=== PATIENT | female | born 1990 | race Caucasian/White ===

== ENCOUNTER 2017-08-11 05:51 | Day surgery (SDC) | payer OTHER ==
[~2017-08-11] VITALS: Ht 162.6 cm; Wt 61.0 kg
[2017-08-11] MEDS ORDERED: LIDOCAINE 1% MDV 20ML VIAL SQ PRN (06:00)
[2017-08-11] MEDS ORDERED: ACETAMINOPHEN 650 MG SUPP PR ONE (06:00)
[2017-08-11] MEDS ORDERED: LR 1,000 ML IV SCH ×2 (06:00→09:15)
[2017-08-11] MEDS ORDERED: LR 1,000 ML IV ONE (06:00)
[2017-08-11 06:30] LABS: MEAN CORPUSCULAR HEMOGLOBIN 30.4 pg (27.0-33.0); MEAN CORPUSCULAR HGB CONC 34.1 g/dl (32.0-36.5); PLATELET COUNT, AUTOMATED 215 10^3/uL (150-450); RED CELL DISTRIBUTION WIDTH 11.5 % (11.5-14.5); WHITE BLOOD COUNT 7.6 10^3/uL (4.0-10.0)
[2017-08-11 06:55] LABS: ANION GAP 6 MEQ/L (8-16); BLOOD UREA NITROGEN 11 MG/DL (7-18); CALCIUM LEVEL 8.6 MG/DL (8.5-10.1); CARBON DIOXIDE LEVEL 28 MEQ/L (21-32); CHLORIDE LEVEL 108 MEQ/L (98-107); GLOMERULAR FILTRATION RATE > 60.0 (>60); GLUCOSE, FASTING 87 MG/DL (70-105); HCG, SERUM QUANTITATIVE < 1.0 MIU/ML; POTASSIUM SERUM 4.3 MEQ/L (3.5-5.1); SODIUM LEVEL 142 MEQ/L (136-145)
[2017-08-11] MEDS ORDERED: BUPIVACAINE HCL 0.5% 10 ML VIAL As Ordered ONE (07:15)
[2017-08-11] MEDS ORDERED: ACETAMINOPHEN 650 MG SUPP As Ordered ONE (07:15)
[2017-08-11] MEDS ORDERED: METHYLENE BLUE 0.5% (5MG/ML) 10 ML AMP (PROVAYBLUE)(Q9968 PER 1MG) As Ordered ONE (07:15)
[2017-08-11] MEDS ORDERED: dexameTHASONE 4 MG/ML 1ML VIAL (J1100) As Ordered ONE (07:55)
[2017-08-11] MEDS ORDERED: MIDAZOLAM INJ 2 MG/2 ML VIAL (J2250) As Ordered ONE (07:55)
[2017-08-11] MEDS ORDERED: fentaNYL 100 MCG/2 ML INJECTION (J3010) As Ordered ONE ×2 (07:55→08:54)
[2017-08-11] MEDS ORDERED: ROCURONIUM BROMIDE 50 MG/5 ML VIAL As Ordered ONE (07:59)
[2017-08-11] MEDS ORDERED: METOCLOPRAMIDE INJ 10MG/2ML VIAL (J2765) As Ordered ONE (07:59)
[2017-08-11] MEDS ORDERED: ONDANSETRON 4MG/2ML VIAL (J2405) As Ordered ONE ×2 (07:59→08:54)
[2017-08-11] MEDS ORDERED: KETOROLAC 60 MG/2 ML VIAL (J1885) As Ordered ONE (08:00)
[2017-08-11] MEDS ORDERED: LIDOCAINE 2% INJ 100 MG/5 ML SDV (FOR ANES.) As Ordered ONE (08:01)
[2017-08-11] MEDS ORDERED: PROPOFOL 500 MG/50 ML VIAL As Ordered ONE (08:06)
[2017-08-11] MEDS ORDERED: NEOSTIGMINE 10 MG/10 ML VIAL (J2710) As Ordered ONE (08:34)
[2017-08-11] MEDS ORDERED: GLYCOPYRROLATE INJ 0.2 MG/ML 2 ML VIAL As Ordered ONE (08:34)
[2017-08-11] MEDS ORDERED: PERCOCET 5MG/325MG TAB As Ordered ONE (08:54)
[2017-08-11] MEDS: fentaNYL 100 MCG/2 ML INJECTION (J3010) IV PRN ×4 (09:00→09:17)
[2017-08-11] MEDS ORDERED: HYDROmorphone HCL 2 MG/ML 1ML VIAL (J1170) As Ordered ONE (09:02)
[2017-08-11] MEDS ORDERED: PERCOCET 5MG/325MG TAB PO PRN (09:15)
[2017-08-11] MEDS ORDERED: HYDROmorphone HCL 1 MG/ML SYRINGE (J1170) IV PRN (09:15)
[2017-08-11] MEDS ORDERED: ONDANSETRON 4MG/2ML VIAL (J2405) IV PRN (09:15)
[2017-08-11 10:26] VITALS: BP 103/58
--- NOTE | 2017-08-12 09:58 | RO ---
DATE OF PROCEDURE: 08/11/2017 PREOPERATIVE DIAGNOSES: Dyspareunia, dysmenorrhea amenorrhea, cervical stenosis impacted intrauterine contraceptive device (IUCD). POSTOPERATIVE DIAGNOSES: Dyspareunia, dysmenorrhea amenorrhea, cervical stenosis impacted IUCD. Defect in the left uterosacral and deviation of the cervical canal to the right. OPERATION PROPOSED: Diagnostic laparoscopy, hysteroscopy, dilation and curettage, removal of IUCD. PROCEDURE PERFORMED: Diagnostic laparoscopy, operative hysteroscopy, removal of IUCD. SURGEON: Dr. Darryl Wilson. LADLE LINER HELPER: Heather. ANESTHESIA: General plus local anesthetic for intraperitoneal procedures. ESTIMATED BLOOD LOSS: Less than 30 mL. DESCRIPTION OF PROCEDURE: Under adequate anesthesia, prepped and draped in lithotomy position. Adequate time-out was performed. Acetaminophen suppository 1300 mg per rectum, sequentials on board, Frye catheter in the bladder draining clear urine. A weighted speculum was placed in vagina. Interestingly the uterus was deviated off to the left and the cervix was deviated off to the left. A single-tooth tenaculum was placed on the anterior lip of the cervix and we initially tried to dilate the cervix. We could not see the IUCD strings and the cervical canal seemed to go off to the left and then suddenly take a descending path posteriorly. We put in a 5 mm dilator and then reprepping and draping, a small subumbilical incision was made. Local anesthetic into the umbilical site. A Josie was placed in the site and then direct entry into the abdomen. No evidence of perforation, hemorrhage or bleeding with the 5 mm port, after expanding the abdomen to 14 mm pressure with 2.8 liters of CO2. Panoramic review of the right upper quadrant was normal. The right round ligament was normal. Anterior aspect of the bladder was clear. Uterus is deviated off to the left. Uterosacral was absent or very deficient on the left. Right and left ovaries appeared to be normal. Right and left tubes appeared to be normal. Under direct vision we went ahead and dilated the cervix in order to get into the uterine cavity. We sounded the uterus depth of 8 cm. Every time we tried to get into the cavity, it appeared to be difficult. We then hysteroscopically evaluated where we were and found our way into the intrauterine cavity. We visualized the strings. We visualized the two arms of the IUCD, one pointing into the right cornua, the other one pointing posteriorly. We tried with the polyp forceps, could not retrieve the intrauterine device (IUD). We tried with a IUD remover, could not remove the IUCD. Therefore we resorted to using the operative hysteroscope and grasped the string with the grasping forceps and pulled the IUCD out. We used 250 mL of normal saline in, 250 mL of normal saline out. We got minimal amount of tissue on curettage as this lady has been amenorrhea since the placement of the Mirena IUCD. It is our belief that this lady should not have an IUCD placed at any time soon as she has such a distorted cervical canal. With instrument and pad counts correct, the instruments were removed from below, the Frye catheter was removed from below, the 5 mm port on the right and the infraumbilical port were sewn in the usual fashion with subcuticular stitches, Marcaine 0.25% to the skin and skin tapes and the patient was sent to recovery in good condition.
== END 2017-08-11 10:39 | disposition home or self-care (01) ==
LOC: M SDC 05:51
PROVIDERS: ATTEND Obstetrics & Gynecology
DX: N94.10 Unspecified dyspareunia (principal); N94.6 Dysmenorrhea, unspecified; N91.2 Amenorrhea, unspecified; N88.2 Stricture and stenosis of cervix uteri; T83.39XA Other mechanical complication of intrauterine contraceptive device, initial encounter; L40.9 Psoriasis, unspecified; Z88.1 Allergy status to other antibiotic agents
CPT/HCPCS: 36415; 49320; 58301; 58558; 80048; 84702; 85027; 88300; J1100; J1170; J1885; J2250; J2405; J2710; J2765; J3010

== ENCOUNTER 2017-09-28 09:53 | Day surgery (SDC) | payer OTHER ==
[2017-09-28] MEDS ORDERED: MIDAZOLAM INJ 2 MG/2 ML VIAL (J2250) As Ordered (09:57)
[2017-09-28] MEDS ORDERED: fentaNYL 100 MCG/2 ML INJECTION (J3010) As Ordered ×2 (09:57→12:09)
[2017-09-28] MEDS ORDERED: NS 800 ML IV (10:00)
[2017-09-28] MEDS: LR 1,000 ML IV (10:00)
[2017-09-28] MEDS ORDERED: NS 1,000 ML IV (10:15)
[2017-09-28 10:20] LABS: HEMATOCRIT 43.2 % (36.0-47.0); HEMOGLOBIN 14.6 g/dl (12.0-16.0); MEAN CORPUSCULAR HEMOGLOBIN 30.1 pg (27.0-33.0); MEAN CORPUSCULAR HGB CONC 33.8 g/dl (32.0-36.5); MEAN CORPUSCULAR VOLUME 89.1 fl (80.0-96.0); PLATELET COUNT, AUTOMATED 239 10^3/uL (150-450); RED BLOOD COUNT 4.85 10^6/uL (4.00-5.40); RED CELL DISTRIBUTION WIDTH 11.4 % (11.5-14.5); WHITE BLOOD COUNT 5.8 10^3/uL (4.0-10.0)
[2017-09-28 10:37] LABS: ANION GAP 7 MEQ/L (8-16); BLOOD UREA NITROGEN 9 MG/DL (7-18); CALCIUM LEVEL 8.9 MG/DL (8.5-10.1); CARBON DIOXIDE LEVEL 25 MEQ/L (21-32); CHLORIDE LEVEL 110 MEQ/L (98-107); CREATININE FOR GFR 0.82 MG/DL (0.55-1.02); GLOMERULAR FILTRATION RATE > 60.0 (>60); GLUCOSE, FASTING 92 MG/DL (70-100); HCG, SERUM QUANTITATIVE < 1.0 MIU/ML; POTASSIUM SERUM 4.1 MEQ/L (3.5-5.1); SODIUM LEVEL 142 MEQ/L (136-145)
[2017-09-28] MEDS: ACETAMINOPHEN 650 MG SUPP As Ordered (11:00)
[2017-09-28] MEDS ORDERED: ROCURONIUM BROMIDE 50 MG/5 ML VIAL As Ordered (11:03)
[2017-09-28] MEDS ORDERED: ONDANSETRON 4MG/2ML VIAL (J2405) As Ordered (11:03)
[2017-09-28] MEDS ORDERED: LIDOCAINE 2% INJ 100 MG/5 ML SDV (FOR ANES.) As Ordered (11:03)
[2017-09-28] MEDS ORDERED: PROPOFOL 200 MG/20 ML VIAL As Ordered (11:03)
[2017-09-28] MEDS ORDERED: ePHEDrine INJ 50 MG/ML VIAL As Ordered (11:03)
[2017-09-28] MEDS ORDERED: KETOROLAC 60 MG/2 ML VIAL (J1885) As Ordered (11:03)
[2017-09-28] MEDS ORDERED: METOCLOPRAMIDE INJ 10MG/2ML VIAL (J2765) As Ordered (11:03)
[2017-09-28] MEDS ORDERED: dexameTHASONE 4 MG/ML 1ML VIAL (J1100) As Ordered (11:03)
[2017-09-28] MEDS: BUPIVACAINE HCL 0.5% 10 ML VIAL As Ordered (11:43)
[2017-09-28] MEDS ORDERED: NORCO, ANEXSIA 5/325MG TABLET (HYDROcodone/ACETAMINOPHEN) As Ordered (12:09)
[2017-09-28] MEDS: fentaNYL 100 MCG/2 ML INJECTION (J3010) IV ×3 (12:10→12:20)
[2017-09-28] MEDS: NORCO, ANEXSIA 5/325MG TABLET (HYDROcodone/ACETAMINOPHEN) PO (12:15)
[2017-09-28] MEDS ORDERED: LR 1,000 ML IV (12:30)
[2017-09-28] MEDS ORDERED: ONDANSETRON 4MG/2ML VIAL (J2405) IV (12:30)
[2017-09-28] MEDS ORDERED: KETOROLAC 30 MG/ML VIAL (J1885) IV (17:15)
== END 2017-09-28 13:45 | disposition home or self-care (01) ==
LOC: M SDC 09:53
DX: Z30.2 Encounter for sterilization (principal); Z88.1 Allergy status to other antibiotic agents
CPT/HCPCS: 58661

== ENCOUNTER 2017-10-20 12:30 | Emergency (ER) | payer OTHER ==
[2017-10-20] MEDS: IPRATROPIUM 0.5MG/ALBUTEROL 2.5MG INH SOL UD 3ML (DUONEB)(J7620) NEB (13:08)
[2017-10-20 13:12] LABS: BASO % 0.2 % (0.0-1.0); EOS % 0.2 % (0.0-3.0); HEMATOCRIT 42.4 % (36.0-47.0); HEMOGLOBIN 14.8 g/dl (12.0-16.0); IMMATURE GRANULOCYTE % 0.3 % (0-3.0); LYMPH # 2.1 10^3/uL (1.5-6.5); LYMPH % 19.4 % (24.0-44.0); MEAN CORPUSCULAR HEMOGLOBIN 30.1 pg (27.0-33.0); MEAN CORPUSCULAR HGB CONC 34.9 g/dl (32.0-36.5); MEAN CORPUSCULAR VOLUME 86.2 fl (80.0-96.0); MONO # 0.8 10^3/uL (0.0-0.8); MONO % 7.9 % (0.0-5.0); NEUTROPHILS # 7.7 10^3/uL (1.8-7.7); PLATELET COUNT, AUTOMATED 190 10^3/uL (150-450); RED BLOOD COUNT 4.92 10^6/uL (4.00-5.40); RED CELL DISTRIBUTION WIDTH 11.3 % (11.5-14.5); WHITE BLOOD COUNT 10.6 10^3/uL (4.0-10.0)
[2017-10-20 13:42] LABS: ALBUMIN 3.8 GM/DL (3.2-5.2); ALBUMIN/GLOBULIN RATIO 1.06 (1.00-1.93); ALKALINE PHOSPHATASE 63 U/L (45-117); ALT/SGPT 16 U/L (12-78); ANION GAP 7 MEQ/L (8-16); AST/SGOT 18 U/L (7-37); BILIRUBIN,DIRECT 0.1 MG/DL (0.0-0.2); BILIRUBIN,TOTAL 0.5 MG/DL (0.2-1.0); BLOOD UREA NITROGEN 10 MG/DL (7-18); CALCIUM LEVEL 8.9 MG/DL (8.5-10.1); CARBON DIOXIDE LEVEL 27 MEQ/L (21-32); CHLORIDE LEVEL 104 MEQ/L (98-107); CPK CREATINE PHOSPHOKINASE 55 U/L (26-192); CREATININE FOR GFR 0.75 MG/DL (0.55-1.30); GLOMERULAR FILTRATION RATE > 60.0 (>60); GLUCOSE, FASTING 86 MG/DL (70-100); POTASSIUM SERUM 3.3 MEQ/L (3.5-5.1); SODIUM LEVEL 138 MEQ/L (136-145); TOTAL PROTEIN 7.4 GM/DL (6.4-8.2); TROPONIN I < 0.02 NG/ML (< 0.10)
[2017-10-20 13:48] LABS: MB/CK RELATIVE INDEX 1.81 (< OR =4); NT-PRO BNP 70 PG/ML (<125)
[2017-10-20] MEDS ORDERED: ISOVUE-370 76% 100ML VIAL (Q9967) As Ordered (13:55)
[2017-10-20] MEDS: POTASSIUM CHLORIDE 10 MEQ SR TABLET PO (15:35)
== END 2017-10-20 15:48 | disposition home or self-care (01) ==
LOC: M ED 12:30
DX: R07.9 Chest pain, unspecified (principal); B34.8 Other viral infections of unspecified site; Z79.899 Other long term (current) drug therapy; Z88.0 Allergy status to penicillin
CPT/HCPCS: Q9967

== ENCOUNTER 2017-11-10 20:39 | Emergency (ER) | payer OTHER ==
[2017-11-10 22:35] LABS: APPEARANCE, URINE CLEAR (CLEAR); BACTERIA, URINE AUTO NEGATIVE (NEGATIVE); BILIRUBIN, URINE AUTO NEGATIVE (NEGATIVE); BLOOD, URINE BLOOD 2+ (NEGATIVE); COLOR, URINE YELLOW (YELLOW); GLUCOSE, URINE (UA) AUTO NEGATIVE (NEGATIVE); KETONE, URINE AUTO NEGATIVE (NEGATIVE); LEUKOCYTE ESTERASE, URINE AUTO NEGATIVE (NEGATIVE); MUCUS, URINE SMALL (NEGATIVE); NITRITE, URINE AUTO NEGATIVE (NEGATIVE); PROTEIN, URINE AUTO NEGATIVE (NEGATIVE); RBC, URINE AUTO 1 /HPF (0-3); SQUAMOUS EPITHELIAL CELL UR AU 0 /HPF (0-6); UROBILINOGEN, URINE AUTO 0.2 mg/dL (0.0-2.0); WBC, URINE AUTO 2 /HPF (0-3)
[2017-11-11 00:57] LABS: CONTROL LINE UCG INT CTR LINE PRESENT; URINE PREG TEST NEGATIVE (NEGATIVE)
[2017-11-11 00:59] LABS: HEMATOCRIT 41.5 % (36.0-47.0); HEMOGLOBIN 14.2 g/dl (12.0-16.0); MEAN CORPUSCULAR HEMOGLOBIN 29.9 pg (27.0-33.0); MEAN CORPUSCULAR HGB CONC 34.2 g/dl (32.0-36.5); MEAN CORPUSCULAR VOLUME 87.4 fl (80.0-96.0); PLATELET COUNT, AUTOMATED 246 10^3/uL (150-450); RED BLOOD COUNT 4.75 10^6/uL (4.00-5.40); RED CELL DISTRIBUTION WIDTH 11.3 % (11.5-14.5); WHITE BLOOD COUNT 11.5 10^3/uL (4.0-10.0)
[2017-11-11 01:05] LABS: ADD MANUAL DIFFER YES; DIFF SLIDE NUMBER 93; POSITIVE DIFF POS FLAG
[2017-11-11 01:30] LABS: ATYPICAL LYMPH 5 % (0-5); BASOPHILS 1 % (0-4); LYMPHOCYTES 42 % (16-52); MONOCYTES 2 % (0-8); NEUTROPHILS 50 % (35-75); PLATELET ESTIMATE NORMAL (NORMAL)
[2017-11-11 01:41] LABS: ALBUMIN 3.9 GM/DL (3.2-5.2); ALBUMIN/GLOBULIN RATIO 1.18 (1.00-1.93); ALKALINE PHOSPHATASE 70 U/L (45-117); ALT/SGPT 15 U/L (12-78); ANION GAP 7 MEQ/L (8-16); AST/SGOT 18 U/L (7-37); BILIRUBIN,TOTAL 0.3 MG/DL (0.2-1.0); BLOOD UREA NITROGEN 11 MG/DL (7-18); CALCIUM LEVEL 8.4 MG/DL (8.5-10.1); CARBON DIOXIDE LEVEL 28 MEQ/L (21-32); CHLORIDE LEVEL 106 MEQ/L (98-107); CREATININE FOR GFR 0.82 MG/DL (0.55-1.30); GLOMERULAR FILTRATION RATE > 60.0 (>60); GLUCOSE, FASTING 88 MG/DL (70-100); HCG, SERUM QUANTITATIVE < 1.0 MIU/ML; POTASSIUM SERUM 4.2 MEQ/L (3.5-5.1); SODIUM LEVEL 141 MEQ/L (136-145); TOTAL PROTEIN 7.2 GM/DL (6.4-8.2)
== END 2017-11-11 02:08 | disposition home or self-care (01) ==
LOC: M ED 20:39
DX: R10.31 Right lower quadrant pain (principal); H69.90 Unspecified Eustachian tube disorder, unspecified ear; Z98.51 Tubal ligation status; J45.909 Unspecified asthma, uncomplicated; F41.9 Anxiety disorder, unspecified; Z79.899 Other long term (current) drug therapy; Z88.0 Allergy status to penicillin
CPT/HCPCS: 80053

== ENCOUNTER 2017-12-27 10:50 | Emergency (ER) | payer OTHER ==
[2017-12-27 12:35] LABS: BILIRUBIN, URINE MANUAL OBSCURED (NEGATIVE); BLOOD URINE MANUAL RFX OBSCURED (NEGATIVE); GLUCOSE, URINE (UA) MANUAL OBSCURED mg/dL (NEGATIVE); KETONE, URINE MANUAL OBSCURED mg/dL (NEGATIVE); MICROSCOPIC INDICATED? RFX YES (NO); NITRITE, URINE MANUAL RFX OBSCURED (NEGATIVE); PROTEIN, URINE MANUAL REFLEX OBSCURED mg/dL (NEGATIVE); SP GRAVITY,URINE MANUAL REFLEX QNS (1.002-1.035); UROBILINOGEN, URINE MANUAL OBSCURED mg/dl (NORMAL)
[2017-12-27 12:36] LABS: BACTERIA, URINE MOD AMOUNT; HYALINE CAST, URINE NONE SEEN /lpf (0-1); MICROSCOPIC EXAM PERFORMED; SQUAMOUS EPITHELIAL CELL URINE MOD AMOUNT /hpf (SMALL AMT); WBC, URINE MAN RFX 15-20 /hpf (0-3)
== END 2017-12-27 12:43 | disposition home or self-care (01) ==
LOC: M ED 10:50
DX: N39.0 Urinary tract infection, site not specified (principal); J45.909 Unspecified asthma, uncomplicated; Z88.0 Allergy status to penicillin; Z79.899 Other long term (current) drug therapy
CPT/HCPCS: 81000

== ENCOUNTER 2018-03-21 13:40 | Emergency (ER) | payer OTHER | END 2018-03-21 16:15 | disposition home or self-care (01) | LOC: M ED 13:40 | DX: S90.01XA Contusion of right ankle, initial encounter (principal); X58.XXXA Exposure to other specified factors, initial encounter; Y92.89 Other specified places as the place of occurrence of the external cause; J30.89 Other allergic rhinitis; Z88.0 Allergy status to penicillin | CPT/HCPCS: 73590 ==

== ENCOUNTER 2018-06-14 20:29 | Emergency (ER) | payer OTHER ==
[2018-06-14 22:34] LABS: AMORPHOUS SEDIMENT RFX SMALL (NEGATIVE); KETONE, URINE AUTO RFX NEGATIVE (NEGATIVE); LEUKOCYTE ESTERASE UR AUTO RFX TRACE (NEGATIVE); MUCUS, URINE RFX SMALL (NEGATIVE); NITRITE, URINE AUTO RFX NEGATIVE (NEGATIVE); RBC, URINE AUTO RFX 3 /HPF (0-3); SPECIFIC GRAVITY UR AUTO RFX 1.014 (1.002-1.035); SQUAM EPITHELIAL CELL UR AURFX 18 /HPF (0-6); WBC, URINE AUTO RFX 4 /HPF (0-3)
[2018-06-14 23:52] LABS: CONTROL LINE UCG INT CTR LINE PRESENT; URINE PREG TEST NEGATIVE (NEGATIVE)
[2018-06-15] MEDS: metroNIDAZOLE (FLAGYL) 500 MG TAB PO (02:15)
[2018-06-15 03:09] LABS: CHLAMYDIA DNA AMPLIFICATION NEGATIVE (NEGATIVE); GC DNA AMPLIFICATION NEGATIVE (NEGATIVE)
== END 2018-06-15 02:18 | disposition home or self-care (01) ==
LOC: M ED 06-15 02:18
DX: N76.0 Acute vaginitis (principal); J45.909 Unspecified asthma, uncomplicated; Z88.0 Allergy status to penicillin
CPT/HCPCS: 84703

== ENCOUNTER 2018-11-16 08:32 | Emergency (ER) | payer OTHER ==
[~2018-11-16] VITALS: Ht 162.6 cm; Wt 62.3 kg
[~2018-11-16 08:32] MED LIST: AZO1CAP2 PO; CEFD1CAP8 PO; FAMO20TA PO; FLAG500T PO; HYDR-643 PO; LEXA1TAB PO; MACR100C43 PO; PRED20TA PO; PROAAER10 PO; PYRI1TAB5 PO; SING10TA32 PO; TRAZ-160 PO; WELLTAB38 PO; ZYRT10CA PO
[2018-11-16] MEDS ORDERED: NS 1,000 ML IV ONE (09:30)
[2018-11-16] MEDS ORDERED: KETOROLAC 30 MG/ML VIAL (J1885) IV ONE (09:30)
[2018-11-16] MEDS: GASTROGRAFIN SOLUTION 30ML PO SCH ×2 (09:52→10:30)
[2018-11-16 10:01] LABS: BASO % 0.6 % (0.0-1.0); EOS # 0.1 10^3/uL (0.0-0.50); EOS % 1.5 % (0.0-3.0); HEMATOCRIT 42.6 % (36.0-47.0); HEMOGLOBIN 14.2 g/dl (12.0-15.5); LYMPH # 2.5 10^3/uL (1.5-6.5); LYMPH % 37.9 % (24.0-44.0); MEAN CORPUSCULAR HEMOGLOBIN 30.5 pg (27.0-33.0); MEAN CORPUSCULAR HGB CONC 33.3 g/dl (32.0-36.5); MEAN CORPUSCULAR VOLUME 91.4 fl (80.0-96.0); MONO # 0.6 10^3/uL (0.0-0.8); MONO % 8.7 % (0.0-5.0); NEUTROPHILS # 3.3 10^3/uL (1.8-7.7); NEUTROPHILS % 50.8 % (36.0-66.0); PLATELET COUNT, AUTOMATED 206 10^3/uL (150-450); RED BLOOD COUNT 4.66 10^6/uL (4.00-5.40); WHITE BLOOD COUNT 6.6 10^3/uL (4.0-10.0)
[2018-11-16 10:24] LABS: ALT/SGPT 21 U/L (12-78); BILIRUBIN,TOTAL 0.6 MG/DL (0.2-1.0); BLOOD UREA NITROGEN 12 MG/DL (7-18); C REACTIVE PROTEIN QUANTITATIV < 0.30 MG/DL (0.00-0.30); CALCIUM LEVEL 8.4 MG/DL (8.5-10.1); CARBON DIOXIDE LEVEL 29 MEQ/L (21-32); CHLORIDE LEVEL 107 MEQ/L (98-107); CREATININE FOR GFR 0.72 MG/DL (0.55-1.30); GLOMERULAR FILTRATION RATE > 60.0 (>60); GLUCOSE, FASTING 83 MG/DL (70-100); POTASSIUM SERUM 3.4 MEQ/L (3.5-5.1); SODIUM LEVEL 138 MEQ/L (136-145); TOTAL PROTEIN 7.1 GM/DL (6.4-8.2)
--- NOTE | 2018-11-16 12:10 | REP ---
CT ABDOMEN PELVIS WITH ORAL CONTRAST ONLY: 11/16/2018 CLINICAL HISTORY: Right lower quadrant pain, decreased appetite. COMPARISON: Abdominal images from CT angiogram chest 10/20/2017 TECHNIQUE: Oral Gastrografin mixture per our protocol utilized. The oral contrast reaches the rectum. Some of it remains in the proximal to distal ileum. FINDINGS: CT ABDOMEN: Lung bases show minor dependent atelectasis but otherwise clear. Heart not enlarged. No pericardial thickening or effusion. Breast implants noted. Liver, spleen, gallbladder and pancreas are grossly unremarkable. No hiatal hernia. Stomach without abnormal distension or wall thickening. Small bowel loops in the abdomen are without dilatation or air-fluid levels. Contrast stool and air seen scattered in the abdominal portion of the colon. The contrast filled appendix is seen and is normal. The aorta is unremarkable. Kidneys show no stone, mass or hydronephrosis. No hydroureter or ureteral stone. Bone windows show lumbar and lower thoracic spine, their posterior elements and visualized ribs intact. CT PELVIS: The sacrum, SI joints, iliac bones, hips, acetabuli and ischia are intact. There is a sclerotic rimmed bone lesion in the proximal right femoral shaft most consistent with a bone cyst or other non-aggressive lesion. No abnormal cortical thickening, erosion or expansion of bone. Uterus is retroverted but not enlarged. Fullness in the region of the right adnexa and low density in that region also noted and suggesting possible 2.6 cm cyst. Left ovary unremarkable. Trace pelvic free fluid is noted. No pelvic lymphadenopathy, ventral or inguinal hernia and the small bowel loops visible are unremarkable. The distal left colon, sigmoid and rectum collapsed but without colitis or diverticulitis. No inflammatory changes about the normal appendix. IMPRESSION: 1. Appendix seen and unremarkable filled with the oral contrast. No sign of colitis, diverticulitis, stricture or mass. 2. Small amount of free fluid in the deep pelvis, more towards the right with a suspected right adnexal cyst 2.6 cm. Please correlate clinically. I do not have he beta hCG status. No other finding. Electronically Signed by Hayden Irvin MD 11/16/2018 09:51 P
[2018-11-16 12:32] VITALS: BP 96/57
[2018-11-16] MEDS ORDERED: KETO10TAB PO (12:33)
== END 2018-11-16 13:02 | disposition home or self-care (01) ==
LOC: M ED 08:32
DX: N83.291 Other ovarian cyst, right side (principal); Z88.0 Allergy status to penicillin; Z91.018 Allergy to other foods
CPT/HCPCS: 36415; 74176; 80053; 81001; 81025; 85025; 86140; 87086; 96374; 99284; J1885; Q9963

== ENCOUNTER 2019-04-16 09:25 | Emergency (ER) | payer OTHER ==
[~2019-04-16] VITALS: Ht 162.6 cm; Wt 59.1 kg
[2019-04-16 09:25] VITALS: BP 111/73
[~2019-04-16 09:25] MED LIST changes: +KETO10TAB PO; -TRAZ-160 PO; +TRAZ-252 PO
[2019-04-16] MEDS ORDERED: hydrOXYzine 25 MG TAB PO STA (10:52)
[2019-04-16] MEDS ORDERED: HYDR-3363 PO (10:53)
== END 2019-04-16 12:22 | disposition home or self-care (01) ==
LOC: M ED 09:25
DX: F43.0 Acute stress reaction (principal); F41.1 Generalized anxiety disorder; Z79.899 Other long term (current) drug therapy; Z91.013 Allergy to seafood; Z88.0 Allergy status to penicillin

== ENCOUNTER 2019-04-23 08:20 | Emergency (ER) | payer OTHER ==
[~2019-04-23] VITALS: Ht 162.6 cm; Wt 64.2 kg
[~2019-04-23 08:20] MED LIST changes: +HYDR-3363 PO
[2019-04-23] MEDS ORDERED: EPIN0.3I11 IM (08:32)
[2019-04-23] MEDS ORDERED: DIPH25TA4 PO (08:32)
[2019-04-23] MEDS ORDERED: FAMOTIDINE INJ 20MG/2ML VIAL (S0028) IVP ONE (08:45)
[2019-04-23] MEDS ORDERED: diphenhydrAMINE INJ 50MG/ML VIAL (J1200) IV ONE (08:45)
[2019-04-23] MEDS ORDERED: methylPREDNISolone INJ 125 MG/2 ML VIAL (J2930) IV ONE (08:45)
[2019-04-23] MEDS ORDERED: PRED20TA PO (09:57)
[2019-04-23] MEDS ORDERED: PEPC1TAB5 PO (09:58)
[2019-04-23] MEDS ORDERED: EPIP0.3I2 IM (09:59)
[2019-04-23] MEDS ORDERED: BENA25CA4 PO (09:59)
[2019-04-23 10:06] VITALS: BP 103/59
== END 2019-04-23 10:13 | disposition home or self-care (01) ==
LOC: M ED 08:20
DX: R06.02 Shortness of breath (principal); R22.0 Localized swelling, mass and lump, head; L50.9 Urticaria, unspecified; T78.40XA Allergy, unspecified, initial encounter; X58.XXXA Exposure to other specified factors, initial encounter; Y92.89 Other specified places as the place of occurrence of the external cause; Z79.899 Other long term (current) drug therapy; Z88.0 Allergy status to penicillin; Z91.018 Allergy to other foods
CPT/HCPCS: 93041; 94760; 96374; 96375; 99284; J1200; J2930

== ENCOUNTER → 2019-06-27 | Outpatient (CLI) | payer OTHER ==
[~2019-06-27] MED LIST changes: +BENA25CA4 PO; +DIPH25TA4 PO; +EPIN0.3I11 IM; +EPIP0.3I2 IM; +PEPC1TAB5 PO
== END ==
LOC: M OUTALCOH 08:12
PROVIDERS: ATTEND Psychiatry & Neurology Psychiatry
DX: Z53.9 Procedure and treatment not carried out, unspecified reason (principal)

== ENCOUNTER 2019-07-05 16:05 | Outpatient (RCR) | payer OTHER | END 2019-07-06 | LOC: M OUTALCOH 16:05 | PROVIDERS: ATTEND Psychiatry & Neurology Psychiatry | DX: F10.10 Alcohol abuse, uncomplicated (principal) ==

== ENCOUNTER 2019-08-01 16:00 | Outpatient (RCR) | payer OTHER | END 2019-08-05 | LOC: M OUTALCOH 16:00 | PROVIDERS: ATTEND Psychiatry & Neurology Psychiatry | DX: F10.10 Alcohol abuse, uncomplicated (principal) ==

== ENCOUNTER 2019-08-29 16:00 | Outpatient (RCR) | payer OTHER | END 2019-09-05 | LOC: M OUTALCOH 16:00 | PROVIDERS: ATTEND Psychiatry & Neurology Psychiatry | DX: F10.10 Alcohol abuse, uncomplicated (principal) ==

== ENCOUNTER 2019-09-29 10:00 | Outpatient (RCR) | payer OTHER | END 2019-10-06 | LOC: M OUTALCOH 10:00 | PROVIDERS: ATTEND Psychiatry & Neurology Psychiatry | DX: F10.10 Alcohol abuse, uncomplicated (principal) ==

== ENCOUNTER 2019-10-24 14:00 | Outpatient (RCR) | payer OTHER ==
[2019-11-04] MEDS ORDERED: BUSP10TA (02:36)
[2019-11-04] MEDS ORDERED: PRAZ1CAP (02:36)
[2019-11-04] MEDS ORDERED: PROV108A INH (04:35)
== END 2019-11-04 ==
LOC: M OUTALCOH 14:00
PROVIDERS: ATTEND Psychiatry & Neurology Addiction Medicine
DX: F10.10 Alcohol abuse, uncomplicated (principal)

== ENCOUNTER 2019-11-04 02:26 | Emergency (ER) | payer OTHER ==
[~2019-11-04] VITALS: Ht 162.6 cm; Wt 59.1 kg
[2019-11-04] MEDS ORDERED: BUSP10TA (02:36)
[2019-11-04] MEDS ORDERED: PRAZ1CAP (02:36)
[2019-11-04] MEDS ORDERED: ALBUTEROL SULFATE 2.5 MG/0.5 ML INH NEB SOLN INH ONE (03:30)
[2019-11-04 03:57] LABS: INFLUENZA A AMPLIFICATION NEGATIVE (NEGATIVE); INFLUENZA B AMPLIFICATION NEGATIVE (NEGATIVE)
[2019-11-04] MEDS ORDERED: PROV108A INH (04:35)
[2019-11-04 04:51] VITALS: BP 118/90
--- NOTE | 2019-11-05 07:51 | REP ---
CHEST: Two views. There is no evidence of acute infiltrate. No pleural effusion is seen. The heart is normal in size. The mediastinal silhouette is unremarkable. The visualized osseous structures are intact. IMPRESSION: No acute pulmonary disease. Electronically Signed by Neville Frye MD 11/05/2019 06:00 P
== END 2019-11-04 04:53 | disposition home or self-care (01) ==
LOC: M ED 02:26
DX: J06.9 Acute upper respiratory infection, unspecified (principal); B34.9 Viral infection, unspecified; J20.9 Acute bronchitis, unspecified; Z88.0 Allergy status to penicillin; Z91.018 Allergy to other foods

== ENCOUNTER 2020-01-25 17:29 | Emergency (ER) | payer OTHER ==
[~2020-01-25] VITALS: Ht 162.6 cm; Wt 65.1 kg
[~2020-01-25 17:29] MED LIST changes: +BUSP10TA; +PRAZ1CAP; +PROV108A INH
[2020-01-25] MEDS ORDERED: ESCI10TA2 (17:52)
[2020-01-25 19:53] VITALS: BP 114/71
== END 2020-01-25 19:54 | disposition home or self-care (01) ==
LOC: M ED 17:29
DX: F41.1 Generalized anxiety disorder (principal); F32.9 Major depressive disorder, single episode, unspecified; J45.909 Unspecified asthma, uncomplicated; Z88.1 Allergy status to other antibiotic agents; Z91.013 Allergy to seafood; Z79.899 Other long term (current) drug therapy

== ENCOUNTER → 2020-03-11 | Outpatient (CLI) | payer OTHER ==
[~2020-03-11] MED LIST changes: +ESCI10TA2; +ISOVUE-300 61% 50ML VIAL As Ordered ONE; +ISOVUE-370 76% 100ML VIAL As Ordered ONE; +LIDOCAINE 1% MDV 20ML VIAL As Ordered ONE; +OMEP40CA97 PO; +TRIAMCINOLONE ACETONIDE SUSP 40 MG/ML VIAL (J3301) As Ordered ONE
--- NOTE | 2020-03-11 17:11 | REP ---
RIGHT HIP INJECTION The procedure was performed under the direct supervision of Dr. Frye. The benefits and risks including but not limited to pain infection bleeding and anaphylaxis were explained to the patient and informed consent was obtained. The right femoral neck was localized using fluoroscopic guidance. The skin was prepped and draped in a sterile fashion. 1% lidocaine was used as a local anesthetic. Using fluoroscopic guidance a 22-gauge spinal needle was inserted and advanced to the femoral neck. 0.5 ml of Isovue 300 was injected to verify placement. 10 ml of a solution containing 9 ml of 1% lidocaine and 1 ml of Kenalog 40 mg injected. The needle was then removed. The patient tolerated the procedure well and there were no immediate complications. Less than 6 seconds of fluoroscopy time was utilized for this procedure. Electronically Signed by BECKIE Wood 03/11/2020 04:40 P Electronically Signed by Neville Frye MD 03/11/2020 05:02 P
== END ==
LOC: M RADPRO 10:11
DX: Z01.818 Encounter for other preprocedural examination (principal); M25.551 Pain in right hip; Z11.59 Encounter for screening for other viral diseases
CPT/HCPCS: 20610; 77002; C9803; J3301; Q9967; U0002

== ENCOUNTER → 2020-03-11 | Outpatient (CLI) | payer OTHER ==
[~2020-03-11] MED LIST changes: +BACT800T5 PO; -ISOVUE-300 61% 50ML VIAL As Ordered ONE; -ISOVUE-370 76% 100ML VIAL As Ordered ONE; -LIDOCAINE 1% MDV 20ML VIAL As Ordered ONE; -TRIAMCINOLONE ACETONIDE SUSP 40 MG/ML VIAL (J3301) As Ordered ONE
== END ==
LOC: M LABSMTC 11:47
PROVIDERS: ATTEND Anesthesiology
DX: Z01.818 Encounter for other preprocedural examination (principal); Z11.59 Encounter for screening for other viral diseases

== ENCOUNTER 2020-03-13 10:39 | Day surgery (SDC) | payer OTHER ==
[~2020-03-13] VITALS: Ht 162.6 cm; Wt 61.2 kg
[~2020-03-13 10:39] MED LIST changes: -BACT800T5 PO; +NS 1,000 ML IV ONE
[2020-03-13] MEDS ORDERED: propofoL 500 MG/50 ML VIAL As Ordered ONE (12:16)
[2020-03-13] MEDS ORDERED: LIDOCAINE 2% 100MG/5ML SDV (FOR ANES.) As Ordered ONE (12:16)
[2020-03-13] MEDS ORDERED: fentaNYL 100 MCG/2 ML INJECTION (J3010) As Ordered ONE (12:16)
--- NOTE | 2020-03-13 12:33 | ROOR ---
Patient Name: Mariam Riojas Procedure Date: 03/13/2020 12:16 PM Date of : 1990 Age: 29 Room: [facility] Gender: Female Note Status: Finalized Procedure: Upper Endoscopy + Biopsies Indications: Heartburn, Exclusion of Curry's esophagus Providers: Duane Quiros MD Referring MD: YO RAM MD Requesting Provider: Medicines: Monitored Anesthesia Care Complications: No immediate complications. Procedure: Pre-Anesthesia Assessment: - The heart rate, respiratory rate, oxygen saturations, blood pressure, adequacy of pulmonary ventilation, and response to care were monitored throughout the procedure. The Endoscope was introduced through the mouth, and advanced to the second part of duodenum. The upper GI endoscopy was accomplished without difficulty. The patient tolerated the procedure well. Findings: The Z-line was regular and was found 40 cm from the incisors. Multiple biopsies were obtained with cold forceps for evaluation to rule out Curry's Esophagus randomly at the gastroesophageal junction. No other significant abnormalities were identified in a careful examination of the stomach. Biopsies were taken with a cold forceps in the gastric antrum for Helicobacter pylori testing. The exam of the duodenum was otherwise normal. Impression: - Z-line regular, 40 cm from the incisors. - Multiple biopsies were obtained at the gastroesophageal junction. - Biopsies were taken with a cold forceps for Helicobacter pylori testing. - The examination was otherwise normal. Recommendation: - Patient has a contact number available for emergencies. The signs and symptoms of potential delayed complications were discussed with the patient. Return to normal activities tomorrow. Written discharge instructions were provided to the patient. - High fiber diet. - Discharge patient to home. - Follow an antireflux regimen. - Continue present medications. - Await pathology results. - Telephone GI clinic for pathology results in 1 week. - Return to referring physician. - The findings and recommendations were discussed with the patient. Duane Quiros MD Duane Quiros MD 03/13/2020 12:32:52 PM Electronically signed by Duane Quiros MD Number of Addenda: 0 Note Initiated On: 03/13/2020 12:16 PM Estimated Blood Loss: Estimated blood loss: none.
--- NOTE | 2020-03-13 12:52 | ROOR ---
Patient Name: Mariam Riojas Procedure Date: 03/13/2020 12:17 PM Date of : 1990 Age: 29 Room: [facility] Gender: Female Note Status: Finalized Procedure: Total Colonoscopy to Cecum + Cold Snare Polypectomy + Hemoclips + Biopsies Indications: Lower abdominal pain, Change in bowel habits Providers: Duane Quiros MD Referring MD: YO RAM MD Requesting Provider: Medicines: Monitored Anesthesia Care Complications: No immediate complications. Procedure: Pre-Anesthesia Assessment: - The heart rate, respiratory rate, oxygen saturations, blood pressure, adequacy of pulmonary ventilation, and response to care were monitored throughout the procedure. The Colonoscope was introduced through the anus and advanced to the terminal ileum, with identification of the appendiceal orifice and IC valve. The colonoscopy was performed without difficulty. The patient tolerated the procedure well. The quality of the bowel preparation was excellent. Findings: The perianal and digital rectal examinations were normal. Non-bleeding internal hemorrhoids were found during retroflexion. The hemorrhoids were small and Grade I (internal hemorrhoids that do not prolapse). A small polyp was found at 25 cm proximal to the anus. The polyp was semi-pedunculated. The polyp was removed with a cold snare. Resection and retrieval were complete. To prevent bleeding after the polypectomy, one hemostatic clip was successfully placed (MR conditional). There was no bleeding at the end of the procedure. The terminal ileum appeared normal. Biopsies for histology were taken with a cold forceps from the ascending colon, transverse colon and descending colon for evaluation of microscopic colitis. The exam was otherwise without abnormality. Impression: - Non-bleeding internal hemorrhoids. - One small polyp at 25 cm proximal to the anus, removed with a cold snare. Resected and retrieved. Clip (MR conditional) was placed. - The examined portion of the ileum was normal. - The examination was otherwise normal. - Biopsies were taken with a cold forceps from the ascending colon, transverse colon and descending colon for evaluation of microscopic colitis. - The exam was otherwise normal to the cecum. Recommendation: - Patient has a contact number available for emergencies. The signs and symptoms of potential delayed complications were discussed with the patient. Return to normal activities tomorrow. Written discharge instructions were provided to the patient. - High fiber diet. - Discharge patient to home. - Continue present medications. - Await pathology results. - Telephone GI clinic for pathology results in 1 week. - Repeat colonoscopy at age 49 for screening purposes. - Return to referring physician. - The findings and recommendations were discussed with the patient. Duane Quiros MD Duane Quiros MD 03/13/2020 12:51:53 PM Electronically signed by Duane Quiros MD Number of Addenda: 0 Note Initiated On: 03/13/2020 12:17 PM Estimated Blood Loss: Estimated blood loss: none.
[2020-03-13 13:38] VITALS: BP 114/81
== END 2020-03-13 13:41 | disposition home or self-care (01) ==
LOC: M OPP 10:39
PROVIDERS: ATTEND Internal Medicine Gastroenterology
DX: K63.5 Polyp of colon (principal); K64.0 First degree hemorrhoids; K58.0 Irritable bowel syndrome with diarrhea; R19.7 Diarrhea, unspecified; R12 Heartburn; K21.9 Gastro-esophageal reflux disease without esophagitis; Z79.899 Other long term (current) drug therapy; Z88.0 Allergy status to penicillin; Z91.013 Allergy to seafood
CPT/HCPCS: 43239; 45380; 45385; 88305; J3010

== ENCOUNTER 2020-03-17 11:09 | Emergency (ER) | payer OTHER ==
[~2020-03-17] VITALS: Ht 154.9 cm; Wt 62.9 kg
[~2020-03-17 11:09] MED LIST changes: -NS 1,000 ML IV ONE
[2020-03-17] MEDS ORDERED: NS 1,000 ML IV ONE (11:30)
[2020-03-17] MEDS ORDERED: KETOROLAC 30 MG/ML 1ML VIAL IV ONE (11:30)
[2020-03-17 12:06] LABS: BASO # 0.1 10^3/uL (0.0-0.2); BASO % 0.5 % (0.0-1.0); EOS # 0.2 10^3/uL (0.0-0.5); EOS % 2.2 % (0.0-3.0); HEMATOCRIT 45.3 % (36.0-47.0); LYMPH # 3.5 10^3/uL (1.5-5.0); LYMPH % 36.1 % (24.0-44.0); MEAN CORPUSCULAR HEMOGLOBIN 29.9 pg (27.0-33.0); MEAN CORPUSCULAR HGB CONC 33.1 g/dl (32.0-36.5); MEAN CORPUSCULAR VOLUME 90.2 fl (80.0-96.0); MONO # 0.9 10^3/uL (0.0-0.8); MONO % 8.9 % (0.0-5.0); NEUTROPHILS # 4.9 10^3/uL (1.5-8.5); NEUTROPHILS % 51.5 % (36.0-66.0); PLATELET COUNT, AUTOMATED 268 10^3/uL (150-450); RED BLOOD COUNT 5.02 10^6/uL (4.00-5.40); WHITE BLOOD COUNT 9.6 10^3/uL (4.0-10.0)
[2020-03-17 12:35] LABS: ALBUMIN 3.7 GM/DL (3.2-5.2); BILIRUBIN,DIRECT 0.2 MG/DL (0.0-0.2); BILIRUBIN,TOTAL 0.4 MG/DL (0.2-1.0); TOTAL PROTEIN 6.9 GM/DL (6.4-8.2)
[2020-03-17] MEDS ORDERED: ISOVUE-370 76% 100ML VIAL As Ordered ONE (14:06)
[2020-03-17 17:00] VITALS: BP 100/68
[2020-03-17 18:11] LABS: CHLAMYDIA DNA AMPLIFICATION NEGATIVE (NEGATIVE); GC DNA AMPLIFICATION NEGATIVE (NEGATIVE)
--- NOTE | 2020-03-18 00:27 | REP ---
PELVIC ULTRASOUND, 03/17/2020. COMPARISON: CT 11/16/2018. CLINICAL HISTORY: Right pelvic pain. Evaluate for cyst or other. FINDINGS: Transabdominal images using the bladder as an acoustic window show the uterus anteverted and measuring 7.8 x 4.6 x 5.2 cm. There is a central endometrial echogenic stripe with thickness of 4 mm. No uterine mass or contour abnormality. Mild anteverted uterus. Smooth contour. No pelvic free fluid. The right ovary 4.1 x 1.4 x 2.1 cm, and the left ovary 3.6 x 1.7 x 2.3 cm. Doppler tracing for both ovaries was normal with resistive index 0.63 on the right, 0.66 on the left. No torsion. IMPRESSION: 1. Uterine size and contour normal. Endometrial stripe unremarkable. 2. No adnexal mass or pelvic free fluid. No torsion; normal color Doppler tracings for both ovaries. Electronically Signed by Hayden Irvin MD 03/18/2020 08:37 A
--- NOTE | 2020-03-18 01:26 | REP ---
CT ABDOMEN AND PELVIS WITH IV CONTRAST ONLY: 03/17/2020. CLINICAL HISTORY: Right lower quadrant pain, rule out appendicitis. COMPARISON: Pelvic ultrasound 03/17/2020, CT 11/16/2018. TECHNIQUE: Patient received a bolus of 100 mL Isovue-370. Scanning through the abdomen and pelvis with coronal and sagittal reconstructions. FINDINGS: CT ABDOMEN: Lung bases are without acute finding. Heart is not enlarged. There is no hiatal hernia. Breast implants noted as incidental finding. Liver, spleen, gallbladder, adrenal glands, and kidneys are unremarkable. Symmetric renal enhancement. No hydronephrosis, hydroureter, renal or ureteral stone on either side. The aorta is unremarkable. No para-aortic or other retroperitoneal/mesenteric lymphadenopathy. Pancreas was unremarkable. Small bowel loops and colon in the abdomen proper are normal. There is no evidence of perforation or free air in the abdomen or pelvis. There is no ascites in the abdomen. Left colon was collapsed but without adjacent inflammatory change. The bone windows show lumbar and lower thoracic spine, their posterior elements, and the visualized ribs all intact. CT PELVIS: The bony sacrum, SI joints, pelvis, and hips show no acute finding. Sclerotic endosteal calcific lesion in the right hip and the proximal right femoral shaft, suggesting bone cyst or other nonaggressive lesion; it is stable for the past year and a half and needs no further evaluation. Uterus retroverted, slightly tilted towards the right. There is a clip in the pelvis from prior salpingectomy. There is no pelvic free fluid or adnexal mass. The appendix is seen without calcification, adjacent inflammatory changes in the fat, or fluid collection. No ventral or inguinal hernia. Bladder without mass, wall thickening, or stone. The distal left colon, sigmoid, and rectum are mostly collapsed. No definite inflammatory change is seen around them. IMPRESSION: 1. There is no CT evidence for appendicitis or appendicoliths. No perforation, abscess, or free air. 2. Collapse of the left colon through rectosigmoid and without definite inflammatory changes in the adjacent fat that would clearly define colitis; very early colitis can have this appearance, however. 3. Prior left salpingectomy with clips in the pelvis to the left of midline. 4. Upper abdomen unremarkable. No renal, ureteral, or bladder stone. 5. Uterus slightly retroverted, not enlarged, and the adnexa show no mass. Electronically Signed by Hayden Irvin MD 03/18/2020 08:44 A
== END 2020-03-17 17:15 | disposition home or self-care (01) ==
LOC: M ED 11:09
DX: K52.9 Noninfective gastroenteritis and colitis, unspecified (principal); Z87.442 Personal history of urinary calculi; F41.9 Anxiety disorder, unspecified; F32.9 Major depressive disorder, single episode, unspecified; Z87.42 Personal history of other diseases of the female genital tract; Z91.013 Allergy to seafood; Z88.0 Allergy status to penicillin
CPT/HCPCS: 74177; 76856; 80047; 80076; 81001; 83690; 84702; 85025; 87210; 87661; 96361; 96374; 99284; J1885; Q9967

== ENCOUNTER 2020-06-09 22:14 | Emergency (ER) | payer OTHER ==
[~2020-06-09] VITALS: Ht 162.6 cm; Wt 62.2 kg
[2020-06-10 00:25] LABS: BASO # 0.1 10^3/uL (0.0-0.2); BASO % 0.5 % (0.0-1.0); EOS # 0.1 10^3/uL (0.0-0.5); EOS % 1.4 % (0.0-3.0); HEMATOCRIT 42.1 % (36.0-47.0); HEMOGLOBIN 14.3 g/dl (12.0-15.5); LYMPH # 3.7 10^3/uL (1.5-5.0); LYMPH % 40.4 % (24.0-44.0); MEAN CORPUSCULAR VOLUME 88.3 fl (80.0-96.0); MONO # 0.7 10^3/uL (0.0-0.8); MONO % 7.5 % (0.0-5.0); NEUTROPHILS # 4.6 10^3/uL (1.5-8.5); NEUTROPHILS % 49.9 % (36.0-66.0); PLATELET COUNT, AUTOMATED 268 10^3/uL (150-450); RED BLOOD COUNT 4.77 10^6/uL (4.00-5.40); WHITE BLOOD COUNT 9.2 10^3/uL (4.0-10.0)
--- NOTE | 2020-06-10 00:44 | REPVR ---
PROCEDURE INFORMATION: Exam: XR Right Hip with Pelvis when Performed Exam date and time: 06/10/2020 12:30 AM Age: 29 years old Clinical indication: Hip pain; Right hip; Prior surgery; Surgery date: <1 month; Additional info: Post op pain, redness TECHNIQUE: Imaging protocol: XR Right hip with pelvis when performed. Views: 2 or 3 views. COMPARISON: 1. CT ABD/PEL W/IV CONTRAST ONLY 03/17/2020 2:[address] ABD/PEL W/PO CONTRAST ONLY 11/16/2018 11:33:09 AM FINDINGS: Bones/joints: There is no fracture or dislocation of the right hip or imaged portion of the right proximal femur. There is a 3.3 cm nonaggressive intramedullary sclerotic lesion in the medial aspect of the right intertrochanteric femur, which is stable compared to the prior CTs on 03/17/2020 and 11/16/2018 and has a narrow zone of transition. There is no cortical breakthrough or pathologic fracture. No bony destructive changes are noted. The right hip joint space is preserved and no right hip joint arthropathy is noted. Soft tissues: Unremarkable. Vasculature: Incidental note is made of small round calcifications in the pelvis, which are compatible with phleboliths. IMPRESSION: No acute radiographic findings in the right hip. Electronically signed by: Alexi Rasheed On 06/10/2020 00:44:06 AM
[2020-06-10] MEDS ORDERED: BACT800T5 PO (00:48)
[2020-06-10] MEDS ORDERED: BACTRIM 160MG/800MG DS TAB PO ONE (01:00)
[2020-06-10 01:01] LABS: ERYTHROCYTE SEDIMENTATION RATE 2 mm/hr (0-20)
[2020-06-10 01:09] VITALS: BP 102/66
== END 2020-06-10 01:10 | disposition home or self-care (01) ==
LOC: M ED 22:14
DX: T81.49XA Infection following a procedure, other surgical site, initial encounter (principal); Y92.9 Unspecified place or not applicable; Y93.9 Activity, unspecified; J45.909 Unspecified asthma, uncomplicated; J30.2 Other seasonal allergic rhinitis; K92.9 Disease of digestive system, unspecified; F41.9 Anxiety disorder, unspecified; F32.9 Major depressive disorder, single episode, unspecified; Z88.0 Allergy status to penicillin; Z91.018 Allergy to other foods